=== PATIENT | female | born 1945 | race Caucasian/White ===

== ENCOUNTER 2022-03-05 14:40 | Inpatient (IN) | payer MEDICARE ==
[~2022-03-05] VITALS: Ht 160 cm; Wt 63.5 kg
[2022-03-05 16:36] LABS: BASOPHILS # (AUTO) 0.1 (0.0-0.1); BASOPHILS % 0.2 % (0.0-1.0); EOSINOPHILS # (AUTO) 0.1 (0.0-0.4); EOSINOPHILS % 0.3 % (0.0-6.0); HEMATOCRIT 41.3 % (34.2-44.1); HEMOGLOBIN 12.8 g/dL (12.0-16.0); LYMPHOCYTES # (AUTO) 0.6 (1.0-3.2); LYMPHOCYTES % 2.6 % (18.0-39.1); MEAN CORPUSCULAR HEMOGLOBIN 30.8 pg (28-32); MEAN CORPUSCULAR VOLUME 99.5 fL (81-99); MONOCYTES # (AUTO) 1.5 (0.2-0.8); MONOCYTES % 6.6 % (4.4-11.3); NEUTROPHILS # (AUTO) 20.4 (2.1-6.9); NEUTROPHILS % 89.3 % (38.7-80.0); PLATELET COUNT 267 x10e3/uL (140-360); RED BLOOD COUNT 4.15 x10e6/uL (3.6-5.1); RED CELL DISTRIBUTION WIDTH 14.4 % (11.7-14.4)
[2022-03-05] MEDS ORDERED: DILTIAZEM HCL 5 MG/ML 5 ML VIAL IV STA (16:37)
[2022-03-05] MEDS ORDERED: PIPERACILLIN/TAZOBACTAM 4.5 GM in SODIUM CHLORIDE 0.9% 100 ML IV ONE (16:45)
[2022-03-05] MEDS ORDERED: SODIUM CHLORIDE 0.9% 1000ML 1,000 ML IV SCH (16:45)
[2022-03-05] MEDS ORDERED: Morphine 4mg INJECTION 4 MG/ML INJ IV PRN (16:45)
[2022-03-05 16:48] LABS: INR 1.18; PROTHROMBIN TIME 15.2 seconds (11.9-14.5)
[2022-03-05 16:49] LABS: PARTIAL THROMBOPLASTIN TIME 33.5 seconds (23.8-35.5)
[2022-03-05] MEDS ORDERED: ONDANSETRON HCL INJ 2MG/ML 2ML 2 MG/ML VIAL ONE (16:56)
[2022-03-05] MEDS ORDERED: Morphine 4mg INJECTION 4 MG/ML INJ ONE (16:56)
[2022-03-05 16:57] LABS: ALBUMIN 2.6 g/dL (3.5-5.0); ALBUMIN/GLOBULIN RATIO 0.7 (0.8-2.0); ANION GAP 13.1 mmol/L (8-16); CALCIUM 11.1 mg/dL (8.4-10.2); CREATININE, SERUM 0.59 mg/dL (0.57-1.11); POTASSIUM 4.1 mmol/L (3.5-5.1)
[2022-03-05] MEDS ORDERED: SODIUM CHLORIDE 0.9% 1000ML 1,000 ML ONE (17:07)
[2022-03-05] MEDS: SODIUM CHLORIDE 0.9% 1000ML 1,000 ML IV SCH ×2 (17:11→22:52)
[2022-03-05] MEDS ORDERED: FENTANYL CITRATE/PF 100MCG/2 ML INJ IV ONE (17:15)
[2022-03-05] MEDS ORDERED: IOPAMIDOL 370 MG/ML 100 ML INFUS..BTL INJ ONE (17:22)
[2022-03-05 18:51] VITALS: BP 129/68
[2022-03-05 20:00] VITALS: BP 129/68
[2022-03-05] MEDS ORDERED: IBUPROFEN 400 MG TAB PO PRN (22:15)
[2022-03-05] MEDS ORDERED: ACETAMINOPHEN 325 MG TAB PO PRN (22:15)
[2022-03-05] MEDS: LORAZEPAM 1 MG TAB PO PRN (22:52)
[2022-03-06] VITALS (7 sets, daily range): BP systolic 109–137; BP diastolic 59–88
[2022-03-06] MEDS: Vancomycin IV 1 GM in SODIUM CHLORIDE 0.9% 250ML 250 ML IV SCH ×2 (02:00→11:16)
[2022-03-06] MEDS ORDERED: DIOVAN80 MG PO (05:39)
[2022-03-06] MEDS ORDERED: SPIRONOLACTONE25 MG PO (05:41)
[2022-03-06] MEDS ORDERED: CARVEDILOL3.125 MG PO (05:41)
[2022-03-06 05:59] LABS: BASOPHILS # (AUTO) 0.1 (0.0-0.1); BASOPHILS % 0.4 % (0.0-1.0); EOSINOPHILS % 0.2 % (0.0-6.0); HEMOGLOBIN 12.1 g/dL (12.0-16.0); LYMPHOCYTES # (AUTO) 0.7 (1.0-3.2); LYMPHOCYTES % 3.5 % (18.0-39.1); MEAN CORPUSCULAR HEMOGLOBIN 31.3 pg (28-32); MEAN CORPUSCULAR HGB CONC 32.7 g/dL (31-35); MEAN CORPUSCULAR VOLUME 95.6 fL (81-99); MONOCYTES # (AUTO) 1.3 (0.2-0.8); MONOCYTES % 6.3 % (4.4-11.3); NEUTROPHILS # (AUTO) 17.9 (2.1-6.9); NEUTROPHILS % 88.3 % (38.7-80.0); PLATELET COUNT 249 x10e3/uL (140-360); RED BLOOD COUNT 3.87 x10e6/uL (3.6-5.1)
[2022-03-06 06:22] LABS: ANION GAP 14.1 mmol/L (8-16); CREATININE, SERUM 0.57 mg/dL (0.57-1.11); POTASSIUM 4.1 mmol/L (3.5-5.1)
[2022-03-06 06:34] LABS: CALCIUM 10.2 mg/dL (8.4-10.2)
[2022-03-06 07:07] LABS: LYMPHOCYTES % (MANUAL) 4 % (19-48); MONOCYTES % (MANUAL) 7 % (3.4-9.0); NEUTROPHILS % (MANUAL) 89 % (40-74); PLATELET ESTIMATE ADEQUATE; PLATELET MORPHOLOGY COMMENT NORMAL; RBC MORPHOLOGY COMMENT NORMAL
[2022-03-06] MEDS: KETOROLAC TROMETHAMINE 30 MG/ML VIAL IV PRN ×2 (08:33→17:38)
[2022-03-06] MEDS: SODIUM CHLORIDE 0.9% 1000ML 1,000 ML IV SCH ×2 (08:36→16:36)
[2022-03-06] MEDS: APIXABAN 5 MG TABLET PO SCH ×2 (10:30→17:28)
[2022-03-06] MEDS: LORAZEPAM 1 MG TAB PO PRN (22:37)
[2022-03-07] VITALS (8 sets, daily range): BP systolic 124–149; BP diastolic 67–95
[2022-03-07] MEDS: Vancomycin IV 1 GM in SODIUM CHLORIDE 0.9% 250ML 250 ML IV SCH ×2 (00:12→13:05)
[2022-03-07] MEDS: SODIUM CHLORIDE 0.9% 1000ML 1,000 ML IV SCH ×3 (00:12→16:27)
[2022-03-07] MEDS: KETOROLAC TROMETHAMINE 30 MG/ML VIAL IV PRN ×3 (00:19→16:38)
[2022-03-07] MEDS: APIXABAN 5 MG TABLET PO SCH ×2 (09:10→16:38)
[2022-03-07 11:51] LABS: BASOPHILS % 0.2 % (0.0-1.0); EOSINOPHILS # (AUTO) 0.1 (0.0-0.4); EOSINOPHILS % 0.4 % (0.0-6.0); HEMATOCRIT 35.4 % (34.2-44.1); HEMOGLOBIN 10.9 g/dL (12.0-16.0); LYMPHOCYTES # (AUTO) 0.5 (1.0-3.2); LYMPHOCYTES % 2.4 % (18.0-39.1); MEAN CORPUSCULAR HEMOGLOBIN 30.9 pg (28-32); MEAN CORPUSCULAR HGB CONC 30.8 g/dL (31-35); MEAN CORPUSCULAR VOLUME 100.3 fL (81-99); MONOCYTES # (AUTO) 1.2 (0.2-0.8); MONOCYTES % 6.2 % (4.4-11.3); NEUTROPHILS # (AUTO) 17.4 (2.1-6.9); NEUTROPHILS % 89.7 % (38.7-80.0); PLATELET COUNT 223 x10e3/uL (140-360); RED BLOOD COUNT 3.53 x10e6/uL (3.6-5.1); RED CELL DISTRIBUTION WIDTH 14.4 % (11.7-14.4)
[2022-03-07 12:16] LABS: ANION GAP 13.1 mmol/L (8-16); CALCIUM 10.1 mg/dL (8.4-10.2); CREATININE, SERUM 0.54 mg/dL (0.57-1.11); POTASSIUM 4.1 mmol/L (3.5-5.1)
[2022-03-07] MEDS: LORAZEPAM 1 MG TAB PO PRN (21:55)
[2022-03-08] VITALS (8 sets, daily range): BP systolic 115–138; BP diastolic 76–119
[2022-03-08] MEDS: Vancomycin IV 1 GM in SODIUM CHLORIDE 0.9% 250ML 250 ML IV SCH ×2 (00:07→12:00)
[2022-03-08] MEDS: SODIUM CHLORIDE 0.9% 1000ML 1,000 ML IV SCH (00:08)
[2022-03-08] MEDS: KETOROLAC TROMETHAMINE 30 MG/ML VIAL IV PRN (00:09)
[2022-03-08 06:28] LABS: BASOPHILS # (AUTO) 0.1 (0.0-0.1); BASOPHILS % 0.4 % (0.0-1.0); EOSINOPHILS # (AUTO) 0.1 (0.0-0.4); EOSINOPHILS % 0.4 % (0.0-6.0); HEMATOCRIT 33.4 % (34.2-44.1); HEMOGLOBIN 11.1 g/dL (12.0-16.0); LYMPHOCYTES # (AUTO) 0.6 (1.0-3.2); MEAN CORPUSCULAR HEMOGLOBIN 30.8 pg (28-32); MEAN CORPUSCULAR HGB CONC 33.2 g/dL (31-35); MEAN CORPUSCULAR VOLUME 92.8 fL (81-99); MONOCYTES # (AUTO) 1.2 (0.2-0.8); MONOCYTES % 6.3 % (4.4-11.3); NEUTROPHILS # (AUTO) 16.3 (2.1-6.9); NEUTROPHILS % 88.8 % (38.7-80.0); PLATELET COUNT 241 x10e3/uL (140-360); RED CELL DISTRIBUTION WIDTH 14.5 % (11.7-14.4)
[2022-03-08 06:56] LABS: CALCIUM 9.8 mg/dL (8.4-10.2); CREATININE, SERUM 0.53 mg/dL (0.57-1.11)
[2022-03-08] MEDS: APIXABAN 5 MG TABLET PO SCH ×2 (09:02→17:10)
[2022-03-08] MEDS: LORAZEPAM 1 MG TAB PO PRN (20:31)
[2022-03-09] VITALS (8 sets, daily range): BP systolic 135–147; BP diastolic 64–98
[2022-03-09] MEDS ORDERED: SODIUM CHLORIDE 0.9% 250ML 250 ML ONE (00:22)
[2022-03-09] MEDS: Vancomycin IV 1 GM in SODIUM CHLORIDE 0.9% 250ML 250 ML IV SCH ×2 (01:05→12:28)
[2022-03-09] MEDS: LORAZEPAM 1 MG TAB PO PRN (03:30)
[2022-03-09 06:10] LABS: BASOPHILS % 0.2 % (0.0-1.0); EOSINOPHILS # (AUTO) 0.1 (0.0-0.4); EOSINOPHILS % 0.4 % (0.0-6.0); HEMOGLOBIN 11.6 g/dL (12.0-16.0); LYMPHOCYTES # (AUTO) 0.6 (1.0-3.2); LYMPHOCYTES % 2.6 % (18.0-39.1); MEAN CORPUSCULAR HEMOGLOBIN 31.1 pg (28-32); MEAN CORPUSCULAR HGB CONC 32.2 g/dL (31-35); MEAN CORPUSCULAR VOLUME 96.5 fL (81-99); MONOCYTES # (AUTO) 1.4 (0.2-0.8); MONOCYTES % 6.4 % (4.4-11.3); NEUTROPHILS # (AUTO) 19.2 (2.1-6.9); NEUTROPHILS % 89.2 % (38.7-80.0); PLATELET COUNT 264 x10e3/uL (140-360); RED BLOOD COUNT 3.73 x10e6/uL (3.6-5.1); RED CELL DISTRIBUTION WIDTH 14.3 % (11.7-14.4)
[2022-03-09 06:31] LABS: ANION GAP 13.1 mmol/L (8-16); CALCIUM 9.8 mg/dL (8.4-10.2); CREATININE, SERUM 0.56 mg/dL (0.57-1.11); POTASSIUM 4.1 mmol/L (3.5-5.1)
[2022-03-09] MEDS: APIXABAN 5 MG TABLET PO SCH ×2 (09:42→17:54)
[2022-03-09 11:25] LABS: EOSINOPHILS % (MANUAL) 1 % (0-7); LYMPHOCYTES % (MANUAL) 4 % (19-48); MONOCYTES % (MANUAL) 4 % (3.4-9.0); NEUTROPHILS % (MANUAL) 91 % (40-74); PLATELET ESTIMATE ADEQUATE; PLATELET MORPHOLOGY COMMENT NORMAL
[2022-03-09 11:26] LABS: RBC MORPHOLOGY COMMENT NORMAL
[2022-03-09] MEDS: OXYBUTYNIN CHLORIDE 5 MG TAB PO SCH ×2 (12:53→17:54)
[2022-03-09] MEDS: CARVEDILOL 3.125 MG TAB PO SCH (17:54)
[2022-03-09] MEDS: KETOROLAC TROMETHAMINE 30 MG/ML VIAL IV PRN (23:10)
[2022-03-10] MEDS: Vancomycin IV 1 GM in SODIUM CHLORIDE 0.9% 250ML 250 ML IV SCH ×2 (00:14→11:46)
[2022-03-10 08:19] VITALS: BP 126/87
[2022-03-10 08:44] VITALS: BP 126/87
[2022-03-10] MEDS: APIXABAN 5 MG TABLET PO SCH ×2 (10:04→17:19)
[2022-03-10] MEDS: OXYBUTYNIN CHLORIDE 5 MG TAB PO SCH ×2 (10:04→17:19)
[2022-03-10] MEDS: CARVEDILOL 3.125 MG TAB PO SCH ×2 (10:04→17:20)
[2022-03-10 12:16] VITALS: BP 117/75
[2022-03-10 16:03] VITALS: BP 116/75
[2022-03-10 20:00] VITALS: BP 118/54
[2022-03-11] VITALS: BP 147/79
[2022-03-11] MEDS: Vancomycin IV 1 GM in SODIUM CHLORIDE 0.9% 250ML 250 ML IV SCH (00:33)
[2022-03-11] MEDS: LORAZEPAM 1 MG TAB PO PRN (01:01)
[2022-03-11 04:00] VITALS: BP 149/98
[2022-03-11 05:41] LABS: BASOPHILS # (AUTO) 0.1 (0.0-0.1); BASOPHILS % 0.2 % (0.0-1.0); EOSINOPHILS # (AUTO) 0.1 (0.0-0.4); EOSINOPHILS % 0.5 % (0.0-6.0); HEMOGLOBIN 11.3 g/dL (12.0-16.0); LYMPHOCYTES # (AUTO) 0.5 (1.0-3.2); LYMPHOCYTES % 2.3 % (18.0-39.1); MEAN CORPUSCULAR HEMOGLOBIN 30.5 pg (28-32); MEAN CORPUSCULAR HGB CONC 31.4 g/dL (31-35); MEAN CORPUSCULAR VOLUME 97.3 fL (81-99); MONOCYTES # (AUTO) 1.3 (0.2-0.8); MONOCYTES % 5.8 % (4.4-11.3); NEUTROPHILS # (AUTO) 19.9 (2.1-6.9); NEUTROPHILS % 90.2 % (38.7-80.0); PLATELET COUNT 292 x10e3/uL (140-360); RED CELL DISTRIBUTION WIDTH 14.5 % (11.7-14.4)
[2022-03-11 06:03] LABS: ANION GAP 13.5 mmol/L (8-16); CALCIUM 10.2 mg/dL (8.4-10.2); CREATININE, SERUM 0.57 mg/dL (0.57-1.11); MAGNESIUM 2.1 MG/DL (1.3-2.1); PHOSPHORUS 2.2 MG/DL (2.3-4.7); POTASSIUM 3.5 mmol/L (3.5-5.1)
[2022-03-11] MEDS ORDERED: METOPROLOL TARTRATE INJ 1 MG/ML VIAL IV PRN (06:45)
[2022-03-11 06:53] LABS: LYMPHOCYTES % (MANUAL) 2 % (19-48); MONOCYTES % (MANUAL) 4 % (3.4-9.0); NEUTROPHILS % (MANUAL) 94 % (40-74)
[2022-03-11 06:56] LABS: PLATELET ESTIMATE ADEQUATE; PLATELET MORPHOLOGY COMMENT FEW LARGE; RBC MORPHOLOGY COMMENT NORMAL
[2022-03-11] MEDS ORDERED: PANTOPRAZOLE SOD 40 MG TABEC PO SCH (07:30)
[2022-03-11] MEDS ORDERED: POTASSIUM PHOSPHATE 15 MM in SODIUM CHLORIDE 0.9% 250ML 250 ML IV SCH (08:00)
[2022-03-11 08:15] VITALS: BP 125/81
[2022-03-11 08:35] VITALS: BP 125/81
[2022-03-11] MEDS ORDERED: ULTRAM 50MG50 MG PO (09:45)
[2022-03-11] MEDS ORDERED: PROTONIX40 MG/ML PO (09:45)
[2022-03-11] MEDS ORDERED: Ibuprofen PO (09:45)
[2022-03-11] MEDS ORDERED: ELIQUIS5 MG PO (09:45)
[2022-03-11] MEDS ORDERED: OXYBUTYNIN CHLOR5 MG PO (09:45)
[2022-03-11] MEDS ORDERED: ACETAMINOPHEN325 M1 PO (09:45)
[2022-03-11] MEDS ORDERED: ATIVAN1 MG PO (09:45)
[2022-03-11] MEDS ORDERED: ACETAMINOPHEN-1 EAC3 PO (09:45)
[2022-03-11] MEDS: APIXABAN 5 MG TABLET PO SCH (11:04)
[2022-03-11] MEDS: OXYBUTYNIN CHLORIDE 5 MG TAB PO SCH (11:04)
[2022-03-11] MEDS: CARVEDILOL 3.125 MG TAB PO SCH (11:04)
[2022-03-11] MEDS ORDERED: ACETAMINOPHEN/CODEINE 300MG - 30MG TAB PO ONE (11:30)
[2022-03-11 12:38] VITALS: BP 128/71
== END 2022-03-11 14:20 | disposition home health service (06) | DRG 862 ==
LOC: ER 15:41 → ERHOLD 16:43 → MED/SURG3 18:23
PROVIDERS: ADMIT Internal Medicine; ATTEND Internal Medicine
PROC: 02HV33Z Insertion of Infusion Device into Superior Vena Cava, Percutaneous Approach (ICD-10-PCS; principal; 2022-03-06)
PROC: 3E04329 Introduction of Other Anti-infective into Central Vein, Percutaneous Approach (ICD-10-PCS; 2022-03-06)
DX: T81.49XA Infection following a procedure, other surgical site, initial encounter (principal); A41.9 Sepsis, unspecified organism; R65.20 Severe sepsis without septic shock; I96 Gangrene, not elsewhere classified; L02.214 Cutaneous abscess of groin; L59.8 Other specified disorders of the skin and subcutaneous tissue related to radiation; K68.11 Postprocedural retroperitoneal abscess; Z92.3 Personal history of irradiation; Z86.718 Personal history of other venous thrombosis and embolism; Z79.01 Long term (current) use of anticoagulants; Z51.5 Encounter for palliative care; G47.33 Obstructive sleep apnea (adult) (pediatric); I48.0 Paroxysmal atrial fibrillation; R62.7 Adult failure to thrive; Z68.24 Body mass index [BMI] 24.0-24.9, adult; Z86.711 Personal history of pulmonary embolism; B96.89 Other specified bacterial agents as the cause of diseases classified elsewhere; Z95.828 Presence of other vascular implants and grafts; E83.52 Hypercalcemia; C51.9 Malignant neoplasm of vulva, unspecified
CPT/HCPCS: 36415; 36569; 71045; 72193; 80048; 80053; 80202; 82948; 83605; 83735; 84100; 84484; 85025; 85610; 85730; 87040; 87071; 87186; 87205; 93005; 94799; 99252; 99285; J1885; J2270; J2405; J2543; J3010; J3370; J7030; J7050; Q9967